=== PATIENT | male | born 1960 | race Caucasian/White ===

== ENCOUNTER 2019-12-26 05:50 | Outpatient (CLI) | payer BC ==
[~2019-12-26] VITALS: Ht 188 cm; Wt 132.5 kg
[~2019-12-26 05:50] MED LIST: ASP325TEC PO; ASP81CT PO; CETI5TAB6 PO; DLT240CCR PO; GLUC500C2 PO; HYDR118S10 PO; KETO50CA PO; MULT1CAP27 PO
[2019-12-26] MEDS ORDERED: CETI10TA17 PO (14:29)
[2019-12-26] MEDS ORDERED: CHOL100045 PO (14:29)
[2019-12-26] MEDS ORDERED: MULT-567 PO (14:29)
[2019-12-26] MEDS ORDERED: GLUC500T PO (14:29)
[2019-12-26] MEDS ORDERED: FLAX100031 PO (14:29)
== END 2019-12-26 14:31 | disposition home or self-care (01) ==
LOC: PREOP 05:50
PROVIDERS: ATTEND Surgery
DX: Z01.818 Encounter for other preprocedural examination (principal)

== ENCOUNTER → 2019-12-31 | Outpatient (CLI) | payer BC ==
[~2019-12-31] MED LIST changes: +CETI10TA17 PO; +CHOL100045 PO; +FLAX100031 PO; +GLUC500T PO; +MULT-567 PO; +RT-ALBUTEROL SULF 2.5 MG/3 ML PRE-MIX VIAL INH ONE
== END ==
LOC: RT 15:12
PROVIDERS: ATTEND Family Medicine
DX: J44.9 Chronic obstructive pulmonary disease, unspecified (principal); Z72.0 Tobacco use
CPT/HCPCS: 94060; 94726; 94729

== ENCOUNTER 2020-01-02 08:20 | Day surgery (SDC) | payer BC ==
[2020-01-02] VITALS (15 sets, daily range): BP systolic 119–145; BP diastolic 65–85
[~2020-01-02] VITALS: Ht 188 cm; Wt 132.5 kg
[~2020-01-02 08:20] MED LIST changes: -RT-ALBUTEROL SULF 2.5 MG/3 ML PRE-MIX VIAL INH ONE
--- NOTE | 2020-01-02 08:26 | Progress Note-Pre Operative ---
Pre-Operative Progress Note H&P Reviewed The H&P was reviewed, patient examined and no changes noted. Date Seen by Provider: Jan 02, 2020 Time Seen by Provider: 08:00 Date H&P Reviewed: Jan 02, 2020 Time H&P Reviewed: 08:00 Pre-Operative Diagnosis: screening WILLIE Wang MD Jan 02, 2020 08:26
--- NOTE | 2020-01-02 08:26 | Conscious Sedation/ASA ---
Conscious Sedation Pre-Proced Time 08:00 ASA Score 2 For ASA 3 and 4: Consider anesthesia and medical clearance. Also, for patients with a history of failed moderate sedation consider anesthesia. Airway Lungs Heart ASA score ASA 1: a normal healthy patient ASA 2: a patient with a mild systemic disease (mid diabetes, controlled hypertension, obesity ASA 3: a patient with a severe systemic disease that limits activity (angina, COPD, prior Myocardial infarction) ASA 4: a patient with an incapacitating disease that is a constant threat to life (CHF, renal failure) ASA 5: a moribund patient not expected to survive 24 hrs. (ruptured aneurysm) ASA 6: a declared brain- patient whose organs are being harvested. For emergent operations, add the letter E after the classification Mallampati Classification Grade 2 Sedation Plan Analgesia, Amnesia, Plan communicated to team members, Discussed options with patient/fam, Discussed risks with patient/fam The patient is an appropriate candidate to undergo the planned procedure, sedation, and anesthesia. The patient immediately re-assessed prior to indication. WILLIE ALANIS MD Jan 02, 2020 08:26
--- NOTE | 2020-01-02 08:27 | Discharge Inst-Surgical ---
D/C Lap Instructions-ANNABELLE Follow Up Activity as tolerated High Fiber Diet 25g or more per day Avoid Alcohol, Caffeine, Spicy Mobridge and Acid foods. Drink 64 fluid oz or more of fluids per day. Symptoms to Report: Fever over 101 degree F, Nausea/Vomiting If any problems/questions: Contact your physician or go to Emergency Room WILLIE ALANIS MD Jan 02, 2020 08:27
[2020-01-02] MEDS ORDERED: ACETAMINOPHEN 325 MG TABLET PO PRN (08:30)
[2020-01-02] MEDS ORDERED: ONDANSETRON 4 MG/2 ML (SDV) Z0FRAN IVP PRN (08:30)
[2020-01-02] MEDS ORDERED: morphine INJ 10 MG/ML 1ML (SYR OR VIAL) IVP PRN ×2 (08:30)
[2020-01-02] MEDS ORDERED: NS IV 500 ML 500 ML IV PRN (08:47)
[2020-01-02] MEDS ORDERED: NS IV 500 ML 500 ML ONE (08:49)
[2020-01-02] MEDS ORDERED: LIDOCAINE JELLY 2% 6 ML SYRINGE MM PRN (09:00)
[2020-01-02] MEDS ORDERED: fentaNYL INJECTION 100 MCG/2 ML AMP IVP ONE (09:00)
[2020-01-02] MEDS ORDERED: LIDOCAINE JELLY 2% 6 ML SYRINGE ONE (09:58)
[2020-01-02] MEDS ORDERED: MIDAZOLAM 5 MG/5 ML (VERSED) VIAL ONE ×2 (09:58→09:59)
[2020-01-02] MEDS ORDERED: fentaNYL INJECTION 100 MCG/2 ML AMP ONE ×2 (09:59)
[2020-01-02] MEDS: MIDAZOLAM 5 MG/5 ML (VERSED) VIAL IV PRN ×4 (10:15→10:25)
--- NOTE | 2020-01-02 10:41 | Progress Note-Post Operative ---
Post-Operative Progess Note Surgeon (s)/Change Control Manager (s) Surgeon WILLIE ALANIS MD Change Control Manager: none Pre-Operative Diagnosis screening colo Post-Operative Diagnosis mild chronic stage 2 ext and int hemorrhoids. Procedure & Operative Findings Date of Procedure 01/02/20 Procedure Performed/Findings Colonoscopy Anesthesia Type cs Estimated Blood Loss Estimated blood loss (mL): minimal Specimens/Packing Specimens Removed none WILLIE ALANIS MD Jan 02, 2020 10:41
--- NOTE | 2020-01-02 13:34 | OPERATIVE REPORT ---
DATE OF SERVICE: 01/02/2020 ATTENDING PRIMARY CARE PHYSICIAN: Taylor Cabezas DO PREOPERATIVE DIAGNOSIS: Screening colonoscopy. POSTOPERATIVE DIAGNOSIS: Mild chronic stage II external and internal hemorrhoids. PROCEDURE: Colonoscopy. SURGEON: Willie Alanis MD ANESTHESIA: Conscious sedation. ESTIMATED BLOOD LOSS: Minimal. FINDINGS: Chronic stage II external and internal hemorrhoids. Prostate gland was palpable and appeared normal. The remainder of the rectum and colon were normal. DISPOSITION: The patient tolerated the procedure well. INDICATIONS: The patient is a 59-year-old male referred over to us for screening colonoscopy. He did have Hemoccult test done that was positive. He does not report any red blood per rectum nor any dark tarry stools. He also does not report any significant change in bowel habits. He does not report any family history of colon cancer as well. DESCRIPTION OF PROCEDURE: The patient was brought to the endoscopy suite, laid in the left lateral decubitus position. After adequate IV pain and sedated medications and conscious sedation anesthesia, digital rectal examination was performed. Mild chronic stage II external and internal hemorrhoids were identified, which were not actively edematous nor inflamed and no bleeding. Normal sphincter tone was felt and there were no palpable masses. Prostate gland was palpable and appeared normal. The endoscope was then intubated to the anus and rectum gently insufflated. The endoscope was then advanced through the valves of [place] of the rectum with no polyps or any neoplasms identified. We then proceeded through the sigmoid colon where there was no diverticulosis identified. The endoscope was then advanced through the remainder of the descending, transverse and ascending colon to the cecum. These segments were normal. There were no polyps or any neoplasms identified throughout the colon or rectum. The endoscope was then slowly withdrawn while taking a second look and suctioning of residual air with no additional findings. The patient tolerated the procedure well. We will recommend a medical management with a high fiber diet with at least 30 grams of fiber daily as well as significant amounts of water daily to promote soft stools on a daily basis. If he is asymptomatic, he does not need another colonoscopy for another 10 years. Job ID: [id number] DocumentID: [id number] Dictated Date: 01/02/2020 10:40:56 Money Room Supervisor Date: 01/02/2020 13:34:06 Dictated By: WILLIE ALANIS MD
== END 2020-01-02 11:55 | disposition home or self-care (01) ==
LOC: ENDO 08:20
PROVIDERS: ATTEND Surgery
DX: Z12.11 Encounter for screening for malignant neoplasm of colon (principal); K64.1 Second degree hemorrhoids; Z96.652 Presence of left artificial knee joint; Z88.5 Allergy status to narcotic agent; Z87.891 Personal history of nicotine dependence

== ENCOUNTER → 2020-04-14 | Outpatient (CLI) | payer BC | LOC: CARD 14:59 | PROVIDERS: ATTEND Nurse Practitioner Family | DX: R06.00 Dyspnea, unspecified (principal); R00.0 Tachycardia, unspecified | CPT/HCPCS: 93005 ==

== ENCOUNTER → 2020-04-16 | Outpatient (CLI) | payer BC ==
--- NOTE | 2020-04-16 13:19 | Diagnostic Imaging Report ---
EXAMINATION: CT Chest without contrast (lung screening). TECHNIQUE: Multiple contiguous axial images were obtained through the chest without the use of intravenous contrast according to lung cancer screening protocol. All CT scans use one or more of the following dose optimizing techniques: automated exposure control, MA and/or KvP adjustment based on a patient size and exam type, or iterative reconstruction. HISTORY: 30 pack year history of smoking, 3 month follow-up. COMPARISON: CT chest 12/20/2019 FINDINGS: Thyroid: The thyroid is normal. Mediastinum: Heart size is normal without significant pericardial effusion. The aorta is normal in caliber. No suspicious lymphadenopathy. Lungs and airways: There is peripheral dominant atelectasis or fibrosis throughout both lungs. The triangular shape of more focal masslike consolidation seen on the prior CT of the right lower lobe has decreased in its solid appearance, likely secondary to atelectasis or scarring. There is a new more focal area of consolidation within the inferior left upper lobe along the major fissure on (series 2 image 61). This finding was not seen on the prior exam. No pleural effusion or pneumothorax. The airways are normal. Upper abdomen: Diffuse hypoattenuation the liver compatible hepatic steatosis. Musculoskeletal: Degenerative changes of the spine without suspicious osseous lesion or compression fracture. Mild bilateral gynecomastia. IMPRESSION: 1. A new 2.0 cm focus of nodular consolidation within the inferior left upper lobe compared to 12/20/2019. Consider short-term CT follow-up in 1 month to exclude infectious or inflammatory process. 2. Decreased size and solid appearance of the triangular-shaped density in the right lower lobe seen on prior CT from 12/20/2019, likely corresponding to atelectasis, scarring, or infectious/inflammatory process. LUNG-RADS CATEGORY: 4B MODIFIER: None. Dictated by: Dictated on workstation # [id number]
== END ==
LOC: RAD 10:26
PROVIDERS: ATTEND Family Medicine
DX: Z12.2 Encounter for screening for malignant neoplasm of respiratory organs (principal); J18.1 Lobar pneumonia, unspecified organism; J98.4 Other disorders of lung; Z87.891 Personal history of nicotine dependence

== ENCOUNTER 2020-06-02 05:35 | Outpatient (RCR) | payer BC ==
[~2020-06-02] VITALS: Ht 188 cm; Wt 129.5 kg
[~2020-06-02 05:35] MED LIST changes: +ASPI-808 PO; +BUDE10.2 IH; +FLUT9.9S NS; +MTP25TSR PO
== END 2020-06-02 10:04 | disposition home or self-care (01) ==
LOC: PREOP 05:35
PROVIDERS: ATTEND Internal Medicine Critical Care Medicine
DX: Z01.812 Encounter for preprocedural laboratory examination (principal); Z01.89 Encounter for other specified special examinations; R91.8 Other nonspecific abnormal finding of lung field; Z20.822 Contact with and (suspected) exposure to COVID-19
CPT/HCPCS: 87635

== ENCOUNTER 2020-06-04 07:03 | Day surgery (SDC) | payer BC ==
[2020-06-04] VITALS (14 sets, daily range): BP systolic 122–165; BP diastolic 61–116
[~2020-06-04] VITALS: Ht 188 cm; Wt 129.5 kg
[2020-06-04] MEDS ORDERED: LIDOCAINE PF 1% 2 ML VIAL IJ ONE (07:04)
[2020-06-04] MEDS ORDERED: LIDOCAINE JELLY 2% 6 ML SYRINGE TOP ONE (07:04)
[2020-06-04] MEDS ORDERED: LIDOCAINE PF 2% 5 ML (XYLOCAINE) VIAL INJ ONE (07:04)
[2020-06-04] MEDS ORDERED: LACTATED RINGERS 1,000 ML IV ONE ×2 (07:23→08:15)
[2020-06-04] MEDS ORDERED: MIDAZOLAM 5 MG/5 ML (VERSED) VIAL IV ONE ×2 (08:00→10:00)
[2020-06-04] MEDS ORDERED: fentaNYL INJECTION 100 MCG/2 ML AMP IVP ONE ×2 (08:00→10:00)
[2020-06-04] MEDS ORDERED: NS IV 500 ML 500 ML IV PRN (08:00)
[2020-06-04] MEDS ORDERED: fentaNYL INJECTION 100 MCG/2 ML AMP ONE ×2 (08:55→08:56)
[2020-06-04] MEDS ORDERED: MIDAZOLAM 5 MG/5 ML (VERSED) VIAL ONE ×2 (08:56)
[2020-06-04] MEDS ORDERED: RT-ALBUTEROL/IPRATROPIUM 3 ML (DUONEB) VIAL ONE (09:36)
--- NOTE | 2020-06-04 10:02 | Pulmonary Procedures ---
Pulmonary Procedures Date of Procedure Date of Service: Jun 04, 2020 Bronch Bronchoscopy with mainstem brush bilateral bronchial washes were obtained. Preop DX lung nodule and cough Postop DX: same Complications: none After informed consent obtained and formal time out pt was sedated using Fentanyl and Versed. Bronchoscope was advanced through the nare and vocal cords. 1% lidocaine was used to anesthetize vocal cords, epiglottis, elyssa, and left/right main stem bronchus. An anatomical tour was undertaken down to the segmental bronchi bilaterally. No endobronchial lesions noted. Bronchoscopy with mainstem brush bilateral bronchial washes were obtained. Pt tolerated procedure well. No complications noted. Stat CXR is pending. TAMIKA ESCOBAR DO Jun 04, 2020 10:02
--- NOTE | 2020-06-04 10:25 | Diagnostic Imaging Report ---
EXAMINATION: Portable supine chest at 10:00 INDICATION: Post bronchoscopy The CT chest exam performed on 04/16/2020 noted 2 mm focus of nodular consolidation within the inferior left upper lobe. Reportedly, the patient has undergone bronchoscopy. On this study, the area of abnormal density in the left upper lobe seen on CT exam is not well appreciated. There does appear to be mild atelectasis/infiltrate involving both lung bases. The upper lungs are generally clear and there is no sign of a pneumothorax. The heart is stable in size when compared to the prior chest exam of 08/26/2013. The mediastinum is somewhat prominent but not significantly changed when compared to the prior exam. The osseous structures are intact. IMPRESSION: 1. The focal area of nodular consolidation in the left upper lung seen previously is not well-visualized on this study. There is no evidence for a pneumothorax following bronchoscopy. 2. There is mild bibasilar pneumonia/atelectasis. Dictated by: Dictated on workstation # [id number]
== END 2020-06-04 10:50 | disposition home or self-care (01) ==
LOC: ENDO 07:03
PROVIDERS: ATTEND Internal Medicine Critical Care Medicine
DX: R91.1 Solitary pulmonary nodule (principal); R91.8 Other nonspecific abnormal finding of lung field; R06.00 Dyspnea, unspecified; Z79.51 Long term (current) use of inhaled steroids; Z79.82 Long term (current) use of aspirin; Z79.899 Other long term (current) drug therapy; Z88.8 Allergy status to other drugs, medicaments and biological substances; Z88.5 Allergy status to narcotic agent
CPT/HCPCS: 71045; 87015; 87070; 87101; 87116; 87205; 87206; 88112; 88305; 88312; 94640